=== PATIENT | female | born 1985 ===

== ENCOUNTER 2017-03-13 21:04 | Emergency (ER) | payer OTHER ==
[2017-03-13 21:52] LABS: URINE BILIRUBIN NEGATIVE (NEGATIVE); URINE BLOOD NEGATIVE (NEGATIVE); URINE GLUCOSE (UA) NEGATIVE (NEGATIVE); URINE KETONE TRACE mg/dL (NEGATIVE); URINE PROTEIN NEGATIVE (NEGATIVE)
[2017-03-13 21:56] LABS: HEMATOCRIT 37.9 % (41.0-60); MEAN CORPUSCULAR HEMOGLOBIN 20.3 pg (27.0-31.0); MEAN CORPUSCULAR HGB CONC 31.6 pg (28.0-36.0); MEAN PLATELET VOLUME 8.4 fl; PLATELET COUNT 264 Th/cmm (150-400); WHITE BLOOD COUNT 9.6 Th/cmm (4.8-10.8)
[2017-03-13 21:57] LABS: MEAN CELL VOLUME 64.1 fl (81-100)
[2017-03-13 22:00] LABS: URINE BACTERIA 1+ /hpf (NONE SEEN); URINE COLOR YELLOW; URINE EPITHELIAL CELLS OCCASIONAL /lpf (FEW); URINE RBC 0-1 /hpf (0-5); URINE WBC 0-2 /hpf (0-5)
[2017-03-13 22:01] LABS: AMYLASE SERUM 64 U/L (29-103); LIPASE 24 U/L (11-82)
[2017-03-13 22:03] LABS: ALB/GLOB RATIO 1.4 (1.0-1.8); ALKALINE PHOSPHATASE 83 U/L (34-104); ANION GAP 7.6 (7.0-16.0); BILIRUBIN,TOTAL 0.3 mg/dL (0.3-1.0); BUN - UREA NITROGEN 14 mg/dL (7-25); BUN/CREATININE RATIO 17.5; CALCIUM SERUM 9.1 mg/dL (8.6-10.3); CARBON DIOXIDE 30.6 mEq/L (21.0-31.0); CHLORIDE 98 mEq/L (98-107); CREATININE - SERUM 0.8 mg/dL (0.6-1.2); GLUCOSE 90 mg/dL (70-105); POTASSIUM SERUM 3.2 mEq/L (3.5-5.1); SGOT 17 U/L (13-39); SGPT/ALT 14 U/L (7-52); SODIUM SERUM 133 mEq/L (136-145)
[2017-03-13 22:05] LABS: BILIRUBIN,DIRECT 0.06 mg/dL (0.0-0.2)
[2017-03-13] MEDS ORDERED: IOHEXOL 300MG/ML 100 ML VIAL ONE (22:23)
[2017-03-13 22:34] LABS: ANISOCYTOSIS 1+; MICROCYTOSIS 3+; NEUTROPHILS 42 % (40-80); PLATELET ESTIMATE ADEQUATE (NORMAL); PLATELET MORPHOLOGY NORMAL (NORMAL); TOTAL CELLS COUNTED 100
--- NOTE | 2017-03-13 22:45 | ED Physician Chart ---
ED Chief Complaint/HPI - Patient Information Date Seen:: 03/13/17 Time Seen:: 21:15 Chief Complaint:: epigastric pain radiating to back like my pancreatitis History of Present Illness:: status post motrin 6 days prior, some question regarding being able to work next wednesday, states pain like prior pancreatitis Allergies:: Allergies Allergy/AdvReac Type Severity Reaction Status Date / Time morphine Allergy Verified 03/13/17 21:22 Vitals:: Vital Signs - 8 hr 03/13/17 21:10 Temp 97.4 F HR 96 RR 18 BP 114/80 O2 Sat % 97 Historian:: Patient Review:: Nurse's Note Reviewed ED Review of Systems - Review of Systems General/Constitutional: No fever Skin: No skin lesions Head: No headache Eyes: No loss of vision ENT: No earache Neck: No neck pain Cardio Vascular: No chest pain Pulmonary: No SOB GI: Nausea, No vomiting, No diarrhea, Pain, Hematochezia, No hematochezia, Hematemesis G/U: No dysuria Wash Operator: No vaginal discharge Musculoskeletal: No bone or joint pain Endocrine: No polyuria Psychiatric: No suicidal ideation Hematopoietic: No lymphadenopathy Allergic/Immuno: No urticaria Neurological: No syncope ED Past Medical History - Past Medical History Obtainable: Yes Past Medical History: HTN Family History: Other (thalasemia b) Social History: No Drug Use Surgical History: other (whipples partial cholecystectomy csec sphincterotomy) Family Medical History - Family Member Father Hx Family Hypertension: Yes ED Physical Exam - Physical Examination General/Constitutional: Well-developed, well-nourished, Alert, No distress, Non- toxic appearing, Ambulatory Head: Atraumatic Eyes: Lids, conjuctiva normal Skin: Nl inspection ENMT: External ears, nose nl, Lips, teeth, gums nl Neck: Nontender, Full ROM w/o pain, No JVD, No nuchal rigidity Respiratory: Nl effort/Exclusion, Clear to Auscultation Cardio Vascular: RRR, No murmur, gallop, rubs, NL S1 S2 GI: No organomegaly, No hernia, Nondistended, No mass/bruits, No McBurney tenderness Other GI comments:: epigastric tenderness localized : No CVA tenderness Extremities: Full ROM, normal strength in all extremities, No edema Neuro/Psych: Alert/oriented, Normal motor strength, Judgement/insight normal Misc: Normal back ED Labs/Radiology/EKG Results - Lab Results Results: Laboratory Tests 03/13/17 03/13/17 03/13/17 21:15 21:15 21:37 WBC 9.6 RBC 5.90 H Hgb 12.0 Hct 37.9 L MCV 64.1 L MCH 20.3 L MCHC Differential 31.6 RDW 16.0 Plt Count 264 MPV 8.4 Sodium Potassium Chloride Carbon Dioxide Anion Gap BUN Creatinine Est GFR ( Amer) Est GFR (Non-Af Amer) BUN/Creatinine Ratio Glucose Calcium Total Bilirubin Direct Bilirubin AST ALT Alkaline Phosphatase Total Protein Albumin Globulin Albumin/Globulin Ratio Amylase Lipase Serum , Qual Urine Source CLEAN C Urine Color YELLOW Urine Clarity CLEAR Urine pH 6.0 Ur Specific [place] 1.025 Urine Protein NEGATIVE Urine Glucose (UA) NEGATIVE Urine Ketones TRACE Urine Blood NEGATIVE Urine Nitrate NEGATIVE Urine Bilirubin NEGATIVE Urine Urobilinogen 1.0 Ur Leukocyte Esterase NEGATIVE Urine RBC 0-1 Urine WBC 0-2 Ur Epithelial Cells OCCASIONAL Urine Bacteria 1+ H Urine Mucus FEW Urine Test NEGATIVE 03/13/17 03/13/17 03/13/17 21:37 21:37 21:37 WBC RBC Hgb Hct MCV MCH MCHC Differential RDW Plt Count MPV Sodium 133 L Potassium 3.2 L Chloride 98 Carbon Dioxide 30.6 Anion Gap 7.6 BUN 14 Creatinine 0.8 Est GFR ( Amer) > 60.0 Est GFR (Non-Af Amer) > 60.0 BUN/Creatinine Ratio 17.5 Glucose 90 Calcium 9.1 Total Bilirubin 0.3 Direct Bilirubin 0.06 AST 17 ALT 14 Alkaline Phosphatase 83 Total Protein 7.4 Albumin 4.3 Globulin 3.1 Albumin/Globulin Ratio 1.4 Amylase 64 Lipase 24 Serum , Qual NEGATIVE Urine Source Urine Color Urine Clarity Urine pH Ur Specific [place] Urine Protein Urine Glucose (UA) Urine Ketones Urine Blood Urine Nitrate Urine Bilirubin Urine Urobilinogen Ur Leukocyte Esterase Urine RBC Urine WBC Ur Epithelial Cells Urine Bacteria Urine Mucus Urine Test Comments:: explained to the patient limits of laboratory in acute pancreatitis, explained radiographic examination may be necessary. Patient aware that symptoms may be early appendicitis. ED Assessment - Assessment General Assessment: Possible dyspepsia no Motrin, recommend prilosec and zantac. K 3.2, recommended to take small amounts kcl liquid 10 meq 1/2 tsp bid 6oz. 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 Patient refused CT scan, discharged against medical advice. This condition life threatening/high prob of deterioration: No ED Septic Shock - . Is Septic Shock (SBP<90, OR Lactate>4 mmol\L) present?: No - <6hrs of presentation: Vital Signs: Vital Signs - 8 hr 03/13/17 21:10 Temp 97.4 F HR 96 RR 18 BP 114/80 O2 Sat % 97 - Time of Reassessment Time of Reassessment: 22:45 ED Reassessment (Disposition) - Reassessment Reassessment Condition:: Unchanged - Diagnosis Diagnosis:: Abdominal pain, dyspepsia, etiology unknown, nonsurgical abdomen - Aftercare/Follow up Instructions Aftercare/Follow-Up Instructions:: Counseled pt regarding lab results/diagnosis & need follow up, Refer to Discharge Instructions (signs appy discussed), Counseled pt & family regarding lab results/diagnosis & need follow up - Patient Disposition Discharge/Transfer:: home ama Condition at Disposition:: Stable (signs appy discussed) ED Discharge Plan - Patient Disposition Admit/Discharge/Transfer: AGAINST MEDICAL ADVICE Condition at Disposition: Stable
== END 2017-03-13 22:45 | disposition left against medical advice (07) ==
LOC: EEVIPCON 21:04 → ER 21:04
DX: R10.13 Epigastric pain (principal); I10 Essential (primary) hypertension
CPT/HCPCS: 99284; 96372; 36415; 85007; 85027; 81001; 82150; 84703; 81025; 83690; 80076; 80048; J1885; Q9967; Z7502

== ENCOUNTER 2017-03-19 17:47 | Outpatient (CLI) | payer OTHER ==
--- NOTE | 2017-03-20 09:15 | Diagnostic Imaging Report ---
Thoracic spine (3 views) HISTORY: Pain Alignment is normal. Disc spaces are maintained. No focal lesions. IMPRESSION: No acute abnormalities
--- NOTE | 2017-03-20 09:15 | Diagnostic Imaging Report ---
Cervical spine (3 views) HISTORY: Pain Alignment is normal. Disc spaces are maintained. No focal lesions. No definite fractures. The prevertebral soft tissues appear normal. Hypoplastic bilateral seventh ribs noted. IMPRESSION: 1. No acute abnormalities 2. Hypoplastic seventh ribs
--- NOTE | 2017-03-20 09:15 | Diagnostic Imaging Report ---
Thoracic spine (3 views) HISTORY: Pain Alignment is normal. Disc spaces are maintained. No focal lesions. IMPRESSION: No acute abnormalities
--- NOTE | 2017-03-20 09:15 | Diagnostic Imaging Report ---
Thoracic spine (3 views) HISTORY: Pain Alignment is normal. Disc spaces are maintained. No focal lesions. IMPRESSION: No acute abnormalities
--- NOTE | 2017-03-20 09:16 | Diagnostic Imaging Report ---
Lumbar spine (3 views) HISTORY: Pain Alignment is normal. Disc spaces are maintained. No focal lesions. Surgical clips noted in the right upper quadrant of the abdomen consistent with prior cholecystectomy. IMPRESSION: Normal examination of the lumbar spine
== END 2017-03-19 18:02 | disposition home or self-care (01) ==
LOC: RAD 17:47
DX: M54.2 Cervicalgia (principal); M54.6 Pain in thoracic spine; M54.5 Low back pain; Q76.6 Other congenital malformations of ribs; V89.2XXA Person injured in unspecified motor-vehicle accident, traffic, initial encounter; Y93.89 Activity, other specified; Y92.89 Other specified places as the place of occurrence of the external cause; Y99.8 Other external cause status
CPT/HCPCS: 72040-TC; 72072-TC; 72100-TC